=== PATIENT | male | born 2000 | race Two or more races ===

== ENCOUNTER 2022-11-21 12:08 | Emergency (ER) | payer MEDICAID ==
[~2022-11-21] VITALS: Ht 167.6 cm; Wt 64.0 kg
[2022-11-21] MEDS ORDERED: ETOMIDATE (2MG/ML) 20ML VIAL IV ONE (12:45)
[2022-11-21 15:15] VITALS: BP 120/72
== END 2022-11-21 15:27 | disposition home or self-care (01) ==
LOC: ER 12:08
DX: S43.005A Unspecified dislocation of left shoulder joint, initial encounter (principal); X50.9XXA Other and unspecified overexertion or strenuous movements or postures, initial encounter; Y93.89 Activity, other specified; Y92.89 Other specified places as the place of occurrence of the external cause; Y99.8 Other external cause status
CPT/HCPCS: 23650; 73020; 73030; 99285; J7030